=== PATIENT | male | born 1985 | race African-American/Black ===

== ENCOUNTER 2020-09-08 15:08 | Emergency (ER) | payer OTHER ==
[2020-09-08] MEDS ORDERED: CYCLOBENZAPRINE HCL 10 MG TABLET ONE (16:27)
[2020-09-08] MEDS ORDERED: TRAMADOL HCL 50 MG TABLET ONE (16:28)
== END 2020-09-08 17:10 | disposition home or self-care (01) ==
LOC: EDH 15:08
DX: S83.512A Sprain of anterior cruciate ligament of left knee, initial encounter (principal); M54.5 Low back pain; J45.909 Unspecified asthma, uncomplicated; Z88.0 Allergy status to penicillin; V89.2XXA Person injured in unspecified motor-vehicle accident, traffic, initial encounter; Y93.89 Activity, other specified; Y92.488 Other paved roadways as the place of occurrence of the external cause; Y99.8 Other external cause status
CPT/HCPCS: 29505; 72100; 73562

== ENCOUNTER 2023-09-02 15:11 | Emergency (ER) | payer OTHER ==
[~2023-09-02] VITALS: Ht 190.5 cm; Wt 123.4 kg
[~2023-09-02 15:11] MED LIST: CEPH500B PO; PHEN-847 PO
[2023-09-02 15:12] VITALS: BP 140/84; PULSE 85; RESP 16
[2023-09-02] MEDS ORDERED: NAPR-1180 PO (16:01)
[2023-09-02] MEDS ORDERED: LIDOP TP (16:01)
[2023-09-02] MEDS ORDERED: CYCL-309 PO (16:01)
== END 2023-09-02 16:40 | disposition home or self-care (01) ==
LOC: EDH 15:11
DX: M54.50 Low back pain, unspecified (principal); M62.830 Muscle spasm of back; E66.9 Obesity, unspecified; Z79.899 Other long term (current) drug therapy; Z98.890 Other specified postprocedural states; Z88.0 Allergy status to penicillin; V89.2XXA Person injured in unspecified motor-vehicle accident, traffic, initial encounter; Y93.I9 Activity, other involving external motion; Y92.488 Other paved roadways as the place of occurrence of the external cause; Y99.8 Other external cause status

== ENCOUNTER 2023-12-21 18:45 | Emergency (ER) | payer BC, OTHER ==
[~2023-12-21] VITALS: Ht 190.5 cm; Wt 127.5 kg
[~2023-12-21 18:45] MED LIST changes: +CYCL-309 PO; +LIDOP TP; +NAPR-1180 PO
[2023-12-21 19:01] VITALS: BP 123/72; PULSE 81; RESP 20
[2023-12-21] MEDS ORDERED: MELO10CA3 PO (19:55)
== END 2023-12-21 20:51 | disposition home or self-care (01) ==
LOC: EDH 18:45
DX: M25.562 Pain in left knee (principal); J45.909 Unspecified asthma, uncomplicated; E66.9 Obesity, unspecified; Z79.1 Long term (current) use of non-steroidal anti-inflammatories (NSAID); Z88.0 Allergy status to penicillin; Z68.35 Body mass index [BMI] 35.0-35.9, adult
CPT/HCPCS: 73562

== ENCOUNTER 2024-11-20 17:45 | Emergency (ER) | payer BC ==
[~2024-11-20] VITALS: Ht 190.5 cm; Wt 122.5 kg
[~2024-11-20 17:45] MED LIST changes: -CEPH500B PO; -CYCL-309 PO; -LIDOP TP; +MELO10CA3 PO; -NAPR-1180 PO; -PHEN-847 PO
[2024-11-20 18:12] VITALS: BP 135/84; TEMP 98; O2SAT 100
--- NOTE | 2024-11-20 18:23 | ERN ---
ED Note History of Present Illness Stated Complaint: SOB Chief Complaint: Shortness of Breath Time Seen by MD: 17:51 Dictation: 39-year-old male with a history of asthma presents to the ED for evaluation of shortness a breath onset 2 days ago. Patient reports cough, but denies any fever or other associated symptoms at this time. Patient states he only uses an inhaler when needed. Allergies: Coded Allergies: Penicillins (Unverified Allergy, Unknown, 04/24/22) Home Meds Active Scripts Meloxicam, Submicronized (Meloxicam) 10 Mg Capsule, 10 MG PO DAILY, #10 CAP Prov:LOU LUNA MD 12/21/23 Past Medical History Past Medical History: Asthma Additional Past Medical Hx: Obese Surgical History: None Surgical History Other: HERNIA REPAIR Family History: Negative Social History: Negative Review of System Dictation Constitutional: Negative for fever,chills, and weight loss Eyes: Negative for injury, pain,redness, and discharge ENT: Negative for injury,pain or swelling Cardiovascular: Negative for chest pain, palpitations, and edema Respiratory: Positive for shortness a breath, cough negative for wheezing, Abdomen/GI: Negative for abdominal pain, nausea, vomiting, diarrhea, and cons tipation Back: Negative for injury and pain : Negative for injury, bleeding and discharge MS/Extremity: Negative for injury and deformity Skin: Negative for rash, and discoloration Neuro: Negative for headache, weakness, numbness, tingling, and seizure Psych: Negative for suicide ideation, homicidal ideation, and hallucinations Initial Vital Sign VS Vital Signs Date Time Temp Pulse Resp B/P (MAP) Pulse Ox O2 Delivery O2 Flow Rate FiO2 11/20/24 17:48 98.1 72 18 147/87 98 11/20/24 18:12 Room Air* 0 21 Physical Exam Dictation General: awake, alert, NAD Head/Face: Normocephalic, atraumatic Eyes: PERRL, EOMI, vision at baseline ENT: oral cavity clear, TMs clear, no signs of infection Neck: Trachea midline, supple, no nuchal rigidity Cardiovascular: RRR, normal S1/S2, No MRGs, no JVD Respiratory: CTAB, no respiratory distress, mild expiratory wheezing Abdomen: Soft, non-tender, non-distended, normal bowel sounds, no guarding or rebound. Skin: Warm, dry, normal turgor, no rash MS/Extremity: Pulses equal, no cyanosis, neurovascular intact, FROM Neuro: COAx4, GCS 15, strength 5/5, CN 2-12 intact, normal cerebellar exam, normal gait, Psych: Normal behavior, mood, and affect normal ED Course ED Course Orders Procedure Category Date Status Time 12 Lead Ekg Tracing- EKG 11/20/24 Logged Technical 18:18 Chest 1vw RAD 11/20/24 Taken 18:18 Ipratropium/Albuterol PHA 11/20/24 Complete Neb (Duoneb) 18:30 Current Medications Medications (Trade) Dose Ordered Sig/Andrzej Route PRN Reason Start Time Stop Time Status Last Admin Dose Admin Albuterol (DUOneb) 1 udvial ONCE ONCE IH 11/20/24 18:30 11/20/24 18:31 DC Vital Signs Date Time Temp Pulse Resp B/P (MAP) Pulse Ox O2 Delivery O2 Flow Rate FiO2 11/20/24 18:12 98.1 81 18 135/84 100 Room Air* 0 21 11/20/24 17:48 98.1 72 18 147/87 98 Medical Decision Making MDM MDM: Differential diagnosis: Asthma exacerbation, cough, viral syndrome Previous outside records reviewed: Old ER visits. Need for hospitalization: Patient does not meet criteria for hospitalization. Need for emergency major/minor surgery: No Patient's prior external medical records from other ER visits were reviewed by me as indicated. Prior testing and results from previous visits were reviewed. Prior tests were taken into account with medical decision making and resource utilization, independent historian/historians were used to obtain complete medical history. I independently interpreted the test that were performed, results were reviewed by me and considered findings on radiology if ordered. Medical management and examination interpretation discussions were had by me with other qualified healthcare professionals as indicated for the patient's care. DX & DISP Disposition: Discharge Departure Impression: Primary Impression: Acute asthma exacerbation Condition: Stable Scripts Albuterol Sulfate (Ventolin Hfa/Proventil Hfa/Proair Hfa) 90 Mcg Puff 1-2 PUFF IH Q4H PRN for SHORTNESS OF BREATH for 5 Days, #1 INH 0 Refills PHARMACY TO DISPENSE 1 INHALER FOR USE Prov: ROSE COTA MD 11/20/24 Prednisone (Prednisone) 50 Mg Tablet 1 TAB PO DAILY for 5 Days, #5 TAB 0 Refills Prov: ROSE COTA MD 11/20/24 Referrals: NONE (PCP) I have reviewed, & agreed with my scribe's, documentation. (Entered by Maxim Silva, acting as a scribe for Dr. Cota) ROSE COTA MD Nov 20, 2024 18:23
[2024-11-20] MEDS ORDERED: PRED50TA2 PO (19:02)
[2024-11-20] MEDS ORDERED: ALBUHFA IH (19:02)
--- NOTE | 2024-11-20 19:02 | HMCIMG ---
Exam Type: CHEST 1VW Clinical Information: sob Comparison: None Findings: The lungs are clear of infiltrates. The heart is normal in size. The bony and soft tissue structures of the chest are unremarkable. Impression: Clear lungs.
[2024-11-20 19:19] VITALS: PULSE 71; RESP 19
[2024-11-20] MEDS: IpraTROPium/alBUTERol SULFATE 3 ML SOLUTION IH ONE (19:19)
--- NOTE | 2024-11-21 06:36 | EKG ---
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
== END 2024-11-20 19:29 | disposition home or self-care (01) ==
LOC: EDH 17:45
DX: J45.901 Unspecified asthma with (acute) exacerbation (principal); E66.9 Obesity, unspecified; Z88.0 Allergy status to penicillin; Z79.1 Long term (current) use of non-steroidal anti-inflammatories (NSAID); Z98.890 Other specified postprocedural states; Z68.33 Body mass index [BMI] 33.0-33.9, adult
CPT/HCPCS: 71045; 93005; 94640; 99283; 99284

== ENCOUNTER 2024-12-23 15:10 | Emergency (ER) | payer BC ==
[~2024-12-23] VITALS: Ht 190.5 cm; Wt 125.9 kg
[~2024-12-23 15:10] MED LIST changes: +ALBUHFA IH; +PRED50TA2 PO
--- NOTE | 2024-12-23 15:24 | ERN ---
ED Note History of Present Illness Stated Complaint: MECHANICAL FALL Chief Complaint: Mechanical Fall Time Seen by MD: 15:15 Dictation: PATIENT IS HERE WITH COMPLAINTS OF BILATERAL WRIST AND LEFT KNEE PAIN STATUS POST A SLIP FALL AT 01:30 THIS AFTERNOON. HE DID NOT HIT HIS HEAD NO BLOOD THINNERS NO TRAUMA ALERT CRITERIA. PATIENT IS FULL WEIGHT-BEARING TO TRIAGE AND DEMONSTRATES FULL RANGE OF MOTION TO ALL AFFECTED EXTREMITIES. Allergies: Coded Allergies: Penicillins (Unverified Allergy, Unknown, 04/24/22) Home Meds Active Scripts Ibuprofen (Ibuprofen 800 mg Tab) 800 Mg Tab, 800 MG PO Q8H PRN for fever or pain, #30 TAB 0 Refills Prov:CASSANDRA MOTT MAJOR ASSEMBLER 12/23/24 Albuterol Sulfate (Ventolin Hfa/Proventil Hfa/Proair Hfa) 90 Mcg Puff, 1-2 PUFF IH Q4H PRN for SHORTNESS OF BREATH for 5 Days, #1 INH 0 Refills PHARMACY TO DISPENSE 1 INHALER FOR USE Prov:ROSE COTA MD 11/20/24 Prednisone (Prednisone) 50 Mg Tablet, 1 TAB PO DAILY for 5 Days, #5 TAB 0 Refills Prov:ROSE COTA MD 11/20/24 Meloxicam, Submicronized (Meloxicam) 10 Mg Capsule, 10 MG PO DAILY, #10 CAP Prov:LOU LUNA MD 12/21/23 Past Medical History Past Medical History: Asthma Additional Past Medical Hx: Obese Surgical History: None Surgical History Other: HERNIA REPAIR Family History: Negative Social History: Negative RN Note Reviewed/Agreed w/PFSH: Yes Review of System Dictation CONSTITUTIONAL: NEGATIVE EXCEPT FOR HPI HEAD/FACE: NEGATIVE EXCEPT FOR HPI EENT: NEGATIVE EXCEPT FOR HPI RESPIRATORY: NEGATIVE EXCEPT FOR HPI GASTROINTESTINAL/ABDOMINAL: NEGATIVE EXCEPT FOR HPI GENITOURINARY: NEGATIVE EXCEPT FOR HPI MUSCULOSKELETAL: NEGATIVE EXCEPT FOR HPI BILATERAL WRIST, LEFT KNEE PAIN INTEGUMENTARY: NEGATIVE EXCEPT FOR HPI NEUROLOGICAL/PSYCH: NEGATIVE EXCEPT FOR HPI HEMATOLOGIC/LYMPHATIC: NEGATIVE EXCEPT FOR HPI ALL SYSTEMS NEGATIVE, EXCEPT NOTED ABOVE. 13 POINT REVIEW OF SYSTEMS ASSESSED AND ALL NEGATIVE EXCEPT FOR ABOVE. Initial Vital Sign VS Vital Signs Date Time Temp Pulse Resp B/P (MAP) Pulse Ox O2 Delivery O2 Flow Rate FiO2 12/23/24 15:14 97.9 84 16 135/83 97 Room Air 0 12/23/24 17:05 21 Physical Exam Dictation VITAL SIGNS REVIEWED GENERAL APPEARANCE: ALERT, ORIENTED X 3, MILD ACUTE DISTRESS, WELL DEVELOPED, NOURISHED. HEAD AND FACE: NON-TRAUMATIC. EYES: PERRL, PINK CONJUNCTIVAS, EYELID NO TRAUMA, ANTERIOR CHAMBER WITH ARCUS SENILIS. EARS: PINNAS INTACT AND NO SIGNS OF TRAUMA OR ERYTHEMA EAR CANALS CLEAR AND NO DISCHARGE TM NO ERYTHEMA NOSE: NO DISCHARGE, NO BLEEDING. OROPHARYNX: MOUTH NORMAL, TONGUE PINK, PHARYNX CLEAR,NO ERYTHEMA, TONSILS NO EXUDATES, NO ABSCESSES NOTED, MUCOUS MEMBRANE MOIST NECK: SUPPLE, NON-TENDER, NO THYROMEGALY, NO MASSES, NO JVD, NO BRUITS BREAST:DEFERRED CHEST:NO TENDERNESS, NO CREPITUS, NO PARADOXICAL MOVEMENT, NO RETRACTIONS LUNGS:CLEAR, WELL-VENTILATED, SYMMETRIC, NO RALES, NO WHEEZING, NO RHONCHI, NO STRIDOR, GOOD BREATH SOUNDS BILATERALLY HEART: REGULAR RATE, REGULAR RHYTHM, NO MURMUR, NO GALLOPS VASCULAR: NO PERIPHERAL EDEMA, ABDOMEN: SOFT, POSITIVE BOWEL SOUNDS, NONDISTENDED, NO GUARDING, NONTENDER, NO REBOUND, NO MASSES NO HEPATOMEGALY, NO SPLENOMEGALY, NO BARRIOS'S SIGN, NO HERNIAS. RECTAL: DEFERRED GENITAL: DEFERRED NEUROLOGICAL: NORMAL SPEECH, MOTOR FUNCTION INTACT, SENSORY FUNCTION INTACT MUSCULOSKELETAL: NECK NONTENDER, FULL RANGE OF MOTION, BACK NONTENDER, FULL RANGE OF MOTION, EXTREMITIES: MILD TENDERNESS TO BILATERAL WRIST, LEFT KNEE, FULL RANGE OF MOTION NO SHORTENING OR ROTATION OF LEFT LEG FULL WEIGHT-BEARING SKIN: COLOR PINK, DRY, NO TURGOR, NO RASH, NO LACERATIONS, NO ABRASIONS, NO CONTUSIONS. LYMPHATIC: DEFERRED Results (Laboratory/Radiology) Laboratory/Radiology WRIST 2VWS RT REASON: WRIST PAIN STATUS POST FALL TECHNIQUE: 2 views were obtained. FINDINGS: There is no evidence of fracture or dislocation. There is no joint effusion. The soft tissues appear unremarkable. There is no evidence of a radiopaque foreign body. IMPRESSION: No acute findings. WRIST 2VWS LT REASON: WRIST PAIN STATUS POST FALL COMPARISON: None TECHNIQUE: 2 views were obtained of the left wrist. FINDINGS: There are normal-appearing bones. There are no fractures. Joint spaces are preserved. Soft tissues are unremarkable. There is no evidence of foreign body. IMPRESSION: 1. Normal views of the left wrist. KNEE 3VWS LT REASON: LEFT KNEE PAIN STATUS POST SLIP FALL TECHNIQUE: 3 views were obtained. FINDINGS: There is no evidence of fracture or dislocation. There is no joint effusion. The soft tissues appear unremarkable. There is no evidence of a radiopaque foreign body. IMPRESSION: No acute findin Labs Reviewed?: Yes ED Course ED Course Orders Procedure Category Date Status Time Wrist 2vws Lt RAD 12/23/24 Resulted 15:22 Wrist 2vws Rt RAD 12/23/24 Resulted 15:22 Knee 3vws Lt RAD 12/23/24 Resulted 15:22 Ibuprofen 800 Mg Tab PHA 12/23/24 Complete (Motrin) 15:30 Current Medications Medications (Trade) Dose Ordered Sig/Andrzej Route PRN Reason Start Time Stop Time Status Last Admin Dose Admin Ibuprofen (moTRIN) 800 mg ONCE ONCE PO 12/23/24 15:30 12/23/24 15:31 DC 12/23/24 16:03 Vital Signs Date Time Temp Pulse Resp B/P (MAP) Pulse Ox O2 Delivery O2 Flow Rate FiO2 12/23/24 17:05 98.8 88 18 131/61 100 Room Air* 0 21 12/23/24 15:14 97.9 84 16 135/83 97 Room Air 0 ONE THOUSAND SEVEN HUNDRED PATIENT DEMONSTRATES FULL RANGE OF MOTION ALL EXTREMITIES. WE WILL BE DISCHARGED HOME WITH CONTUSIONS OF BILATERAL WRIST AND KNEE Medical Decision Making MDM MEDICAL DISCHARGE MAKING BASED ON X-RAYS OF ALL PAINFUL AREAS LEFT KNEE, BILATERAL WRIST X-RAYS NEGATIVE PATIENT DEMONSTRATES FULL RANGE OF MOTION ALL AFFECTED EXTREMITIES DISCHARGED HOME WITH CONTUSIONS AND TOLD TO SEE HIS PRIMARY CARE MDM: Differential diagnosis: Fall, contusion, wrist pain Risk of complication and/or morbidity or mortality of patient management: None Medications-Per medication reconciliation Need for hospitalization: Patient does not meet criteria for hospitalization. Need for emergency major/minor surgery: No There are no social concerns with this patient. Prescription drug management Prescriptions will include symptomatic care I independently interpreted the test that were performed, results were reviewed by me and considered findings on radiology if ordered. DX & DISP Disposition: Discharge Departure Impression: Primary Impression: Contusion of left wrist, initial encounter Additional Impressions: Contusion of right wrist, initial encounter, Contusion of left knee, initial encounter, Fall Condition: Stable Scripts Ibuprofen (Ibuprofen 800 mg Tab) 800 Mg Tab 800 MG PO Q8H PRN for fever or pain, #30 TAB 0 Refills Prov: CASSANDRA MOTT MAJOR ASSEMBLER 12/23/24 Additional Instructions: FOLLOW-UP WITH PRIMARY CARE PROVIDER IN 1 TO 2 DAYS. TAKE MEDICATIONS DIRECTED HERE IN THE EMERGENCY ROOM. OKAY TO CONTINUE HOME MEDICATIONS UNLESS OTHERWISE DISCUSSED DURING YOUR VISIT IN THE EMERGENCY ROOM TODAY. RETURN TO YOUR NEAREST EMERGENCY ROOM IF SYMPTOMS WORSEN OR IF THERE IS NO IMPROVEMENT. CALL 911 IF YOU NEED IMMEDIATE ASSISTANCE. TAKE TYLENOL OR MOTRIN [id number] NEEDED AND IF NO CONTRAINDICATIONS ARE PRESENT. INCREASE ORAL HYDRATION. A WOUND CULTURE OR URINE CULTURE WAS ORDERED HERE IN THE EMERGENCY ROOM DEPARTMENT PLEASE FOLLOW-UP WITH PRIMARY CARE PROVIDER AND ADVISE THEM TO GET REPEAT PORTS FROM OUR FACILITY. IF YOU HAD ANY MADISON WRAP/SPLINTS THAT WERE APPLIED HERE, PLEASE DO NOT REMOVE THEM UNTIL YOU SEE YOUR PRIMARY CARE OR SPECIALTY. COOL COMPRESSES TO PAIN THREE TO 4 TIMES A DAY. TAKE IBUPROFEN DIRECTED WITH FOOD. SEE YOUR PRIMARY CARE DOCTOR FOR FOLLOW UP AND ACTIVITY TOLERATED Referrals: RAYMOND IBANEZ (PCP) Time of Disposition: 17:00 I have reviewed the case, and I agree with, Diagnosis and Plan I performed the substantive portion of the visit. I have reviewed and personally made and approve the management plan that is documented in the notes by myself or the BABITA. I acknowledge full responsibility for the patient's management plan. CASSANDRA MOTT NP Dec 23, 2024 15:24 ROSE COTA MD Dec 24, 2024 18:41
[2024-12-23] MEDS: ibuPROFEN 800 MG TAB PO ONE (16:03)
--- NOTE | 2024-12-23 16:13 | HMCIMG ---
WRIST 2VWS LT REASON: WRIST PAIN STATUS POST FALL COMPARISON: None TECHNIQUE: 2 views were obtained of the left wrist. FINDINGS: There are normal-appearing bones. There are no fractures. Joint spaces are preserved. Soft tissues are unremarkable. There is no evidence of foreign body. IMPRESSION: 1. Normal views of the left wrist.
--- NOTE | 2024-12-23 16:14 | HMCIMG ---
KNEE 3VWS LT REASON: LEFT KNEE PAIN STATUS POST SLIP FALL TECHNIQUE: 3 views were obtained. FINDINGS: There is no evidence of fracture or dislocation. There is no joint effusion. The soft tissues appear unremarkable. There is no evidence of a radiopaque foreign body. IMPRESSION: No acute findings.
--- NOTE | 2024-12-23 16:14 | HMCIMG ---
WRIST 2VWS RT REASON: WRIST PAIN STATUS POST FALL TECHNIQUE: 2 views were obtained. FINDINGS: There is no evidence of fracture or dislocation. There is no joint effusion. The soft tissues appear unremarkable. There is no evidence of a radiopaque foreign body. IMPRESSION: No acute findings.
[2024-12-23] MEDS ORDERED: IBUP-2077 PO (17:01)
[2024-12-23 17:05] VITALS: BP 131/61; PULSE 88; RESP 18; TEMP 98.7; O2SAT 100
== END 2024-12-23 17:12 | disposition home or self-care (01) ==
LOC: EDH 15:10
DX: S60.212A Contusion of left wrist, initial encounter (principal); S60.211A Contusion of right wrist, initial encounter; S80.02XA Contusion of left knee, initial encounter; J45.909 Unspecified asthma, uncomplicated; E66.9 Obesity, unspecified; Z88.0 Allergy status to penicillin; Z98.890 Other specified postprocedural states; Z79.52 Long term (current) use of systemic steroids; Z79.1 Long term (current) use of non-steroidal anti-inflammatories (NSAID); W01.0XXA Fall on same level from slipping, tripping and stumbling without subsequent striking against object, initial encounter; Y93.89 Activity, other specified; Y92.89 Other specified places as the place of occurrence of the external cause; Y99.8 Other external cause status
CPT/HCPCS: 73100; 73562; 99283

== ENCOUNTER 2025-05-08 20:40 | Emergency (ER) | payer BC ==
[~2025-05-08] VITALS: Ht 188 cm; Wt 123.1 kg
[~2025-05-08 20:40] MED LIST changes: +IBUP-2077 PO
--- NOTE | 2025-05-08 20:41 | NUR ---
UA CUP PROVIDED
[2025-05-08 21:05] LABS: BASOPHILS # (AUTO) 0.02 K/uL (0.00-0.20); BASOPHILS % (AUTO) 0.3 % (0.0-5.0); EOSINOPHILS # (AUTO) 0.05 K/uL (0.00-0.70); EOSINOPHILS % (AUTO) 0.7 % (0.0-8.0); HEMATOCRIT 39.8 % (42-54); IMMATURE GRANULOCYTE ABSOLUTE 0.03 K/uL (0-1); LYMPHOCYTES # (AUTO) 1.9 K/uL (1.0-4.8); LYMPHOCYTES % (AUTO) 26.4 % (21.0-51.0); MEAN CORPUSCULAR HGB CONC 33.4 g/dL (32.0-36.0); MEAN CORPUSCULAR VOLUME 89.6 fL (79-99); MONOCYTES # (AUTO) 0.4 K/uL (0.1-1.0); MONOCYTES % (AUTO) 5.4 % (3.0-13.0); NEUTROPHILS # (AUTO) 4.9 K/uL (1.8-7.7); NEUTROPHILS % (AUTO) 66.8 % (40.0-77.0); PLATELET COUNT (AUTO) 187 K/uL (130-400); RED BLOOD CELL COUNT(AUTO) 4.44 MIL/uL (4.50-6.20); RED CELL DISTRIBUTION WIDTH 11.5 % (11.0-15.5); WHITE BLOOD COUNT (AUTO) 7.4 K/uL (4.8-10.8)
[2025-05-08 21:08] LABS: APPEARANCE,URINE CLEAR (CLEAR); COLOR,URINE LIGHT-YELLOW (YELLOW)
[2025-05-08 21:09] LABS: BILIRUBIN,URINE NEGATIVE (NEGATIVE); GLUCOSE, URINE (UA) NEGATIVE (NEGATIVE); KETONES,URINE NEGATIVE (NEGATIVE); LEUKOCYTE ESTERASE ,URINE NEGATIVE Leu/uL (NEGATIVE); NITRATE,URINE NEGATIVE (NEGATIVE); OCCULT BLOOD,URINE NEGATIVE (NEGATIVE); PH,URINE 5.5 (5.0-8.0); PROTEIN,URINE NEGATIVE (NEGATIVE)
[2025-05-08 21:13] LABS: POTASSIUM 4.1 mmol/L (3.5-5.1)
[2025-05-08 21:13] LABS: ADD UA MICROSCOPIC YES
[2025-05-08 21:15] LABS: MUCUS,URINE RARE LPF (None Seen); RBC,URINE 0-1 /HPF (0-1); SQUAMOUS EPITHELIAL CELL,UR RARE /HPF (0-2)
--- NOTE | 2025-05-08 21:27 | ERN ---
ED Note History of Present Illness Stated Complaint: ABD PAIN N/V Chief Complaint: Abdominal Pain Time Seen by MD: 20:48 Dictation: This is a 39-year-old male who has presented to the emergency room with the abdominal pain nausea and vomitings that just started. He stated that he ate go goes squeeze apple strawberry which had an expiration date of 03/17 2023 from a local store and subsequently began experiencing all these symptoms. No hematemesis or melena. No fevers chills or rigors. Temp 99 pulse 89 respirations 20 blood pressure 131/75 with a pulse oximetry of 98% on room air Allergies: Coded Allergies: Penicillins (Unverified Allergy, Unknown, 04/24/22) Home Meds Active Scripts Ibuprofen (Ibuprofen 800 mg Tab) 800 Mg Tab, 800 MG PO Q8H PRN for fever or pain, #30 TAB 0 Refills Prov:CASSANDRA MOTT MILK BOTTLER 12/23/24 Albuterol Sulfate (Ventolin Hfa/Proventil Hfa/Proair Hfa) 90 Mcg Puff, 1-2 PUFF IH Q4H PRN for SHORTNESS OF BREATH for 5 Days, #1 INH 0 Refills PHARMACY TO DISPENSE 1 INHALER FOR USE Prov:ROSE COTA MD 11/20/24 Prednisone (Prednisone) 50 Mg Tablet, 1 TAB PO DAILY for 5 Days, #5 TAB 0 Refills Prov:ROSE COTA MD 11/20/24 Meloxicam, Submicronized (Meloxicam) 10 Mg Capsule, 10 MG PO DAILY, #10 CAP Prov:LOU LUNA MD 12/21/23 Past Medical History Past Medical History: No Pertinent History, Asthma Additional Past Medical Hx: Obese Surgical History: Other Surgical History Other: HERNIA REPAIR Family History: Negative Social History: Negative RN Note Reviewed/Agreed w/PFSH: Yes Review of System Dictation Constitutional: Negative for fever,chills, and weight loss Eyes: Negative for injury, pain,redness, and discharge ENT: Negative for injury,pain or swelling Cardiovascular: Negative for chest pain, palpitations, and edema Respiratory: Negative for shortness of breath, cough, and wheezing, Abdomen/GI: Positive for abdominal pain, nausea, vomiting, diarrhea, Back: Negative for injury and pain : Negative for injury, bleeding and discharge MS/Extremity: Negative for injury and deformity Skin: Negative for rash, and discoloration Neuro: Negative for headache, weakness, numbness, tingling, and seizure Psych: Negative for suicide ideation, homicidal ideation, and hallucinations Initial Vital Sign VS Vital Signs Date Time Temp Pulse Resp B/P (MAP) Pulse Ox O2 Delivery O2 Flow Rate FiO2 05/08/25 20:41 99.0 89 20 131/75 98 Room Air 05/08/25 22:25 0 21 Physical Exam Dictation General: awake, alert, NAD very comfortable Head/Face: Normocephalic, atraumatic Eyes: PERRL, EOMI, vision at baseline ENT: oral cavity clear, TMs clear, no signs of infection Neck: Trachea midline, supple, no nuchal rigidity Cardiovascular: RRR, normal S1/S2, No MRGs, no JVD Respiratory: CTAB, no respiratory distress, No rales or wheezes Abdomen: Soft, non-tender, non-distended, normal bowel sounds, no guarding or rebound. Skin: Warm, dry, normal turgor, no rash MS/Extremity: Pulses equal, no cyanosis, neurovascular intact, FROM Neuro: COAx4, GCS 15, strength 5/5, CN 2-12 intact, normal cerebellar exam, normal gait, Psych: Normal behavior, mood, and affect normal Extremities-trace edema without any palpable cords, Homans sign is negative Results (Laboratory/Radiology) Laboratory/Radiology Laboratory Tests Test 05/08/25 20:51 05/08/25 20:57 Urine Color LIGHT-YELLOW (YELLOW) Urine Appearance CLEAR (CLEAR) Urine pH 5.5 (5.0-8.0) Urine Specific [place] 1.025 (1.001-1.031) Urine Protein NEGATIVE mg/dL (NEGATIVE) Urine Glucose (UA) NEGATIVE mg/dL (NEGATIVE) Urine Ketones NEGATIVE mg/dL (NEGATIVE) Urine Occult Blood NEGATIVE (NEGATIVE) Urine Nitrate NEGATIVE (NEGATIVE) Urine Bilirubin NEGATIVE mg/dL (NEGATIVE) Urine Urobilinogen 2.0 mg/dL (0.2-1.0) H Urine Leukocyte Esterase NEGATIVE Stacy/uL Urine RBC 0-1 /HPF (0-1) Urine WBC 2-5 /HPF (0-1) H Urine Squamous Epithelial Cells RARE /HPF (0-2) Urine Bacteria None /HPF (None Seen) White Blood Count 7.4 K/uL (4.8-10.8) Red Blood Count 4.44 MIL/uL (4.50-6.20) L Hemoglobin 13.3 g/dL (14.0-18.0) L Hematocrit 39.8 % (42-54) L Mean Corpuscular Volume 89.6 fL (79-99) Mean Corpuscular Hemoglobin 30.0 pg (27.0-33.0) Mean Corpuscular Hemoglobin Concent 33.4 g/dL (32.0-36.0) Red Cell Distribution Width 11.5 % (11.0-15.5) Platelet Count 187 K/uL (130-400) Mean Platelet Volume 10.0 fL (7.5-10.5) Immature Granulocyte % (Auto) 0.4 % (0-1) Neutrophils (%) (Auto) 66.8 % (40.0-77.0) Lymphocytes (%) (Auto) 26.4 % (21.0-51.0) Monocytes (%) (Auto) 5.4 % (3.0-13.0) Eosinophils (%) (Auto) 0.7 % (0.0-8.0) Basophils (%) (Auto) 0.3 % (0.0-5.0) Neutrophils # (Auto) 4.9 K/uL (1.8-7.7) Lymphocytes # (Auto) 1.9 K/uL (1.0-4.8) Monocytes # (Auto) 0.4 K/uL (0.1-1.0) Eosinophils # (Auto) 0.05 K/uL (0.00-0.70) Basophils # (Auto) 0.02 K/uL (0.00-0.20) Absolute Immature Granulocyte (auto 0.03 K/uL (0-1) Nucleated Red Blood Cells 0.0 % (0.0-0.19) Sodium Level 144 mmol/L (136-145) Potassium Level 4.1 mmol/L (3.5-5.1) Chloride Level 106 mmol/L (101-111) Carbon Dioxide Level 30 mmol/L (21-32) Blood Urea Nitrogen 13 mg/dL (7-18) Creatinine 1.0 mg/dL (0.5-1.3) Glomerular Filtration Rate Calc 99 mL/min (>90) Random Glucose 119 mg/dL (70-105) H Total Calcium 8.8 mg/dL (8.5-10.1) Lipase 32 U/L (16-77) Labs Reviewed?: Yes ED Course ED Course Orders Procedure Category Date Status Time Vital Signs Per CPOE 05/08/25 Transmitted Routine 20:42 Saline Lock Iv CPOE 05/08/25 Transmitted 20:42 Cbc With Differential LAB 05/08/25 Complete 20:42 Lipase LAB 05/08/25 Complete 20:42 Urinalysis Profile LAB 05/08/25 Complete 20:42 Basic Metabolic Panel LAB 05/08/25 Complete 20:42 Ketorolac PHA 05/08/25 Complete Tromethamine 30mg/Ml 21:30 Ondansetron 4mg PHA 05/08/25 In Process Tablet (Zofran 4mg 21:30 Dicyclomine Hcl PHA 05/08/25 Complete (Bentyl 20mg Inj) 21:30 Current Medications Medications (Trade) Dose Ordered Sig/Andrzej Route PRN Reason Start Time Stop Time Status Last Admin Dose Admin Dicyclomine HCl (Bentyl 20mg Inj) 20 mg ONCE ONCE IM 05/08/25 21:30 05/08/25 21:42 DC Ketorolac Tromethamine (toRADol) 30 mg ONCE ONCE IM 05/08/25 21:30 05/08/25 21:42 DC Ondansetron HCl (zoFRAN 4MG TABLET) 4 mg ONCE ONCE PO 05/08/25 21:30 05/08/25 21:42 DC 05/08/25 21:52 Vital Signs Date Time Temp Pulse Resp B/P (MAP) Pulse Ox O2 Delivery O2 Flow Rate FiO2 05/08/25 22:25 98.1 74 18 127/79 96 Room Air* 0 21 05/08/25 20:41 99.0 89 20 131/75 98 Room Air We will perform diagnostic labs, advanced imaging and administer medications according to the patient's complaint. Once the results are available, will review and personally interpreted the labs to rule out any acute life- threatening emergency the trach require immediate intervention and treatment. I will then re-evaluate the patient after treatment and diagnostic exams have return to determine whether the patient requires any further testing, can safely be discharged home or need further admission to hospital for additional treatment and evaluation. 9:25 p.m. labs reviewed CBC is with a normal limits. BNP 7 is normal. Urinalysis is unremarkable. Updated the patient on all the negative studies and reassured him with a benign abdominal exam no tenderness that his symptoms probably are related to a mild food poisoning. Answered all his questions we will discharge him to follow up with his PCP Medical Decision Making MDM MDM: Differential diagnosis: Gastroenteritis, gastritis, food poisoning, esophagitis, colitis Rationale: Tests considered and ordered secondary to shared decision making include: Previous outside records reviewed: Old ER visits. Risk of complication and/or morbidity or mortality of patient management: None Medications-Per medication reconciliation Need for hospitalization: Patient does not meet criteria for hospitalization. Need for emergency major/minor surgery: No There are no social concerns with this patient. Prescription drug management Prescriptions will include symptomatic care Patient's prior external medical records from other ER visits were reviewed by me as indicated. Prior testing and results from previous visits were reviewed. Prior tests were taken into account with medical decision making and resource utilization, independent historian/historians were used to obtain complete medical history. I independently interpreted the test that were performed, results were reviewed by me and considered findings on radiology if ordered. Medical management and examination interpretation discussions were had by me with other qualified healthcare professionals as indicated for the patient's care. Problem List Problem List: (1) Food poisoning DX & DISP Disposition: Discharge Departure Impression: Primary Impression: Food poisoning Condition: Stable Additional Instructions: Patient and the caregiver have been informed of all the diagnostic tests and the imaging conducted during the today's visit to the emergency room and has verbalized understanding of the results I have personally reviewed and interpreted all diagnostic exams performed here in the ER today as well as the vital signs documented by the nursing staff. The patient is now being discharged to home and should follow up with the primary care physician or the specialist as directed by the ER staff. Follow-up with primary care provider in 1 to 2 days. Take medications as directed here in the emergency room. Okay to continue home medications unless otherwise discussed during your visit in the emergency room today. Return to your nearest emergency room if symptoms worsen or if there is no improvement. Call 911 if you need immediate assistance. Take Tylenol or Motrin over-the- counter as needed and if no contraindications are present. Increase oral hydration. A wound culture or urine culture was ordered here in the emergency room department please follow-up with primary care provider and advise them to get repeat ports from our facility. If you had any Brooks wrap/splints that were applied here, please do not remove them until you see your primary care or specialty. Recommended to increase his fluids. [id number] Tylenol PRN Referrals: RAYMOND IBANEZ (PCP) PARRISH GREENBERG MD May 08, 2025 21:27
[2025-05-08] MEDS: ketOROlac 30MG VIAL (30MG/ML) IM ONE (21:52)
[2025-05-08] MEDS: ondanSETRON 4MG TABLET PO ONE (21:52)
[2025-05-08] MEDS: DICYCLOMINE 20MG (10MG/ML) AMP IM ONE (21:52)
[2025-05-08 22:25] VITALS: BP 127/79; PULSE 74; RESP 18; TEMP 98.1; O2SAT 96
== END 2025-05-08 22:26 | disposition home or self-care (01) ==
LOC: EDH 20:40
DX: A05.9 Bacterial foodborne intoxication, unspecified (principal); E66.9 Obesity, unspecified; Z79.1 Long term (current) use of non-steroidal anti-inflammatories (NSAID); Z79.52 Long term (current) use of systemic steroids; Z88.0 Allergy status to penicillin; Z98.890 Other specified postprocedural states; Z68.34 Body mass index [BMI] 34.0-34.9, adult
CPT/HCPCS: 99283; 80048; 83690; 85025; 81001; 36415; Q0162; J0500; J1885

== ENCOUNTER 2025-06-23 19:28 | Emergency (ER) | payer BC ==
[~2025-06-23] VITALS: Ht 190.5 cm; Wt 123.8 kg
--- NOTE | 2025-06-23 21:14 | HMCIMG ---
EXAM: CT Head Without IV contrast. CLINICAL HISTORY: Head injury TECHNIQUE: Axial computed tomography images of the head/brain without intravenous contrast. COMPARISON: None provided FINDINGS: BRAIN: No evidence of acute hemorrhage. No mass lesion. No CT evidence for acute territorial infarct. No midline shift or extra-axial collections. VENTRICLES: No hydrocephalus. ORBITS: The orbits are unremarkable. SINUSES AND MASTOIDS: The paranasal sinuses and mastoid air cells are clear. BONES: No fracture. SOFT TISSUES: Unremarkable. IMPRESSION: No acute intracranial abnormality. /[place]
--- NOTE | 2025-06-23 21:36 | HMCIMG ---
EXAM: CR left Knee, 3 View. CLINICAL HISTORY: pain, injury COMPARISON: None provided. FINDINGS: BONES: No acute fracture or aggressive appearing osseous lesion. JOINTS: The joint spaces show no significant degenerative disease. There is no joint effusion appreciated. SOFT TISSUES: The soft tissues are unremarkable. IMPRESSION: No acute osseous pathology evident. /[place]
--- NOTE | 2025-06-23 21:51 | ERN ---
General Chief Complaint: Mechanical Fall Stated Complaint: C/O PAIN TO LEFT KNEE AND PAIN TO BACK OF HEAD Time Seen by MD: 19:44 Time Seen by Midlevel: 19:44 Source: patient History of Present Illness Initial Comments 39-year-old male who presents to the emergency department after a fall. Patient states he slipped and fell hitting the back of the head and complaining of left knee pain. Patient denies any LOC, denies blood thinners. Denies significant past medical history. Allergies: Coded Allergies: Penicillins (Unverified Allergy, Unknown, 04/24/22) Home Meds Active Scripts Ibuprofen (Ibuprofen 800 mg Tab) 800 Mg Tab, 800 MG PO Q8H PRN for fever or pain, #30 TAB 0 Refills Prov:CASSANDRA MOTT COMPUTER [employer]ERICAL CONTROL PROGRAMMER 12/23/24 Albuterol Sulfate (Ventolin Hfa/Proventil Hfa/Proair Hfa) 90 Mcg Puff, 1-2 PUFF IH Q4H PRN for SHORTNESS OF BREATH for 5 Days, #1 INH 0 Refills PHARMACY TO DISPENSE 1 INHALER FOR USE Prov:ROSE COTA MD 11/20/24 Prednisone (Prednisone) 50 Mg Tablet, 1 TAB PO DAILY for 5 Days, #5 TAB 0 Refills Prov:ROSE COTA MD 11/20/24 Meloxicam, Submicronized (Meloxicam) 10 Mg Capsule, 10 MG PO DAILY, #10 CAP Prov:LOU LUNA MD 12/21/23 Past Medical History Past Medical History: Asthma Medical History Other: Obese Past Surgical History: None Surgical History Other: HERNIA REPAIR Family History Family History: Negative Social History Social History: Negative ROS Dictation Constitutional: Negative for fever,chills, and weight loss Eyes: Negative for injury, pain,redness, and discharge ENT: Negative for injury,pain or swelling Cardiovascular: Negative for chest pain, palpitations, and edema Respiratory: Negative for shortness of breath, cough, and wheezing, Abdomen/GI: Negative for abdominal pain, nausea, vomiting, diarrhea, and constipation Back: Negative for injury and pain : Negative for painful urination, bleeding or discharge MS/Extremity: Positive for left knee pain Negative for injury and deformity Skin: Negative for rash, and discoloration Neuro: Positive for headache Negative for weakness, numbness, tingling, and seizure Psych: Negative for suicide ideation, homicidal ideation, and hallucinations Physical Exam Physical Exam Dictation General: awake, alert, no acute distress Head/Face: Normocephalic, atraumatic Eyes: PERRL, EOMI, normal conjunctiva ENT: oral cavity clear, oral mucosa moist Neck: Supple, normal range of motion Cardiovascular: RRR, normal S1/S2 Respiratory: CTAB, no respiratory distress Skin: Warm, dry, normal turgor, no rash MS/Extremity: Pulses equal, no cyanosis, neurovascular intact, FROM. Left knee medial and posterior tenderness, no obvious deformity. Neuro: COAx4, GCS 15, no neurological deficits Psych: Normal behavior, mood, and affect normal Results EKG/XRAY/US/CT/MRI X-RAY Comment REASON: pain, injury ORDERING PHYSICIAN: LLUVIA MAKI PROCEDURE: KNEE 3V LT - KNEE 3VWS LT EXAM: CR left Knee, 3 View. CLINICAL HISTORY: pain, injury COMPARISON: None provided. FINDINGS: BONES: No acute fracture or aggressive appearing osseous lesion. JOINTS: The joint spaces show no significant degenerative disease. There is no joint effusion appreciated. SOFT TISSUES: The soft tissues are unremarkable. IMPRESSION: No acute osseous pathology evident. /[place] DICTATED BY: RUDDY RUSSELL Jr., MD DATE: 06/23/252234 CT Scan Comment REASON: Head injury ORDERING PHYSICIAN: LLUVIA MAKI PROCEDURE: HEAD WO - CT HEAD/BRAIN W/O CONTRAST EXAM: CT Head Without IV contrast. CLINICAL HISTORY: Head injury TECHNIQUE: Axial computed tomography images of the head/brain without intravenous contrast. COMPARISON: None provided FINDINGS: BRAIN: No evidence of acute hemorrhage. No mass lesion. No CT evidence for acute territorial infarct. No midline shift or extra-axial collections. VENTRICLES: No hydrocephalus. ORBITS: The orbits are unremarkable. SINUSES AND MASTOIDS: The paranasal sinuses and mastoid air cells are clear. BONES: No fracture. SOFT TISSUES: Unremarkable. IMPRESSION: No acute intracranial abnormality. /[place] DICTATED BY: RUDDY RUSSELL Jr., MD DATE: 06/23/252212 [facility] MDM: Differential diagnosis: Fracture, sprain, strain, head injury, intracranial bleed Rationale: 39-year-old male who presents to the emergency department after a fall. Patient states he slipped and fell hitting the back of the head and complaining of left knee pain. Patient denies any LOC, denies blood thinners. Denies significant past medical history. Per physical examination patient is in no acute distress, neurologically intact. No obvious deformities to the left knee, tenderness noted, neurovascularly intact. X-rays of the left knee obtained with no indications of fractures or dislocations. Head CT shows no acute abnormalities. Patient received ibuprofen while in the ED, and placed on a knee immobilizer. Patient was educated on findings and diagnosis. Advised to follow up PCP. Return to the emergency department if any worsening symptoms. Patient verbalized understanding. Patient stable for discharge. There are no social concerns with this patient. I independently interpreted the test that were performed, results were reviewed by me and considered findings on radiology if ordered. Medical management and examination interpretation discussions were had by me with other qualified healthcare professionals as indicated for the patient's care. ED Course Orders Procedure Category Date Status Time Ct Head/Brain W/O CT 06/23/25 Resulted Contrast 20:00 Knee 3vws Lt RAD 06/23/25 Resulted 20:00 Ibuprofen 600 Mg PHA 06/23/25 Complete Tablet (Motrin) 21:00 Current Medications Medications (Trade) Dose Ordered Sig/Andzrej Route PRN Reason Start Time Stop Time Status Last Admin Dose Admin Ibuprofen (moTRIN) 600 mg ONCE ONCE PO 06/23/25 21:00 06/23/25 21:01 DC 06/23/25 20:49 Vital Signs Date Time Temp Pulse Resp B/P (MAP) Pulse Ox O2 Delivery O2 Flow Rate FiO2 06/23/25 19:30 98.6 82 20 136/81 97 Room Air DX & DISP Disposition: Discharge Departure Impression: Primary Impression: Fall Additional Impression: Knee sprain Condition: Stable Additional Instructions: Discharge home. Rest. Follow up with primary care in 24 hours. Return to the ER for any acute changes or worsening symptoms. If any medications were prescribed take as directed. Okay to continue home medications unless otherwise discussed during your visit in the emergency room today. Patient was also advised to follow-up with primary care physician in 1 to 2 days for continued monitoring. Referrals: RAYMOND IBANEZ (PCP) I performed the substantive portion of the visit. I have reviewed and personally made and approve the management plan that is documented in the notes by myself or the BABITA. I acknowledge full responsibility for the patient's management plan. LLUVIA MAKI Jun 23, 2025 21:51
--- NOTE | 2025-06-23 21:52 | NUR ---
LEFT KNEE IMMOBILIZER PLACED PER ED PA
[2025-06-23 22:19] VITALS: BP 150/79; PULSE 76; RESP 18; TEMP 98.3; O2SAT 98
== END 2025-06-23 22:22 | disposition home or self-care (01) ==
LOC: EDH 19:28
DX: S83.92XA Sprain of unspecified site of left knee, initial encounter (principal); E66.9 Obesity, unspecified; J45.909 Unspecified asthma, uncomplicated; Z79.1 Long term (current) use of non-steroidal anti-inflammatories (NSAID); Z79.52 Long term (current) use of systemic steroids; Z88.0 Allergy status to penicillin; Z98.890 Other specified postprocedural states; W01.0XXA Fall on same level from slipping, tripping and stumbling without subsequent striking against object, initial encounter; Y93.89 Activity, other specified; Y92.89 Other specified places as the place of occurrence of the external cause; Y99.8 Other external cause status
CPT/HCPCS: 29505; 70450; 73562; 99284

== ENCOUNTER 2025-07-24 08:37 | Emergency (ER) | payer SELFPAY ==
[~2025-07-24] VITALS: Ht 190.5 cm; Wt 122.1 kg
[2025-07-24 08:45] VITALS: TEMP 97.9
[2025-07-24 09:11] LABS: IMMATURE GRANULOCYTE ABSOLUTE 0.03 K/uL (0-1); NUCLEATED RED BLOOD CELLS 0.0 % (0.0-0.19); PLATELET COUNT (AUTO) 160 K/uL (130-400); RED BLOOD CELL COUNT(AUTO) 4.78 MIL/uL (4.50-6.20); RED CELL DISTRIBUTION WIDTH 11.3 % (11.0-15.5); WHITE BLOOD COUNT (AUTO) 6.9 K/uL (4.8-10.8)
[2025-07-24] MEDS: 0.9%NACL 1000ML 1,000 ML IV ONE (09:21)
[2025-07-24] MEDS: LOPERAMIDE HCL 2 MG CAP PO ONE (09:21)
[2025-07-24 09:29] LABS: ASPARTATE AMINOTRANSFERASE 18.0 U/L (10-37); CREATININE 1.0 mg/dL (0.5-1.3); GLOMERULAR FILTR. RATE CALC 99.0 mL/min (>90); GLUCOSE,RANDOM 96.0 mg/dL (70-105); TOTAL PROTEIN, SERUM 7.2 g/dL (6.0-8.3); UREA NITROGEN, BLOOD 12.0 mg/dL (7-18)
[2025-07-24 09:30] LABS: SODIUM SERUM 138.0 mmol/L (136-145)
[2025-07-24] MEDS ORDERED: ONDA-243 PO (09:42)
[2025-07-24] MEDS ORDERED: DICY20TA2 PO (09:42)
--- NOTE | 2025-07-24 09:42 | ERN ---
ED Note History of Present Illness Stated Complaint: ABDOMINAL PAIN Chief Complaint: Abdominal Pain Time Seen by MD: 08:47 Dictation: 39-year-old male presenting to the emergency department for nausea vomiting and diarrhea belly cramps after eating spoiled cake yesterday. Patient denies no pain just feels crampy discomfort. Allergies: Coded Allergies: Penicillins (Unverified Allergy, Unknown, 04/24/22) Home Meds Active Scripts Ibuprofen (Ibuprofen 800 mg Tab) 800 Mg Tab, 800 MG PO Q8H PRN for fever or pain, #30 TAB 0 Refills Prov:CASSANDRA MOTT LINING BRUSHER 12/23/24 Albuterol Sulfate (Ventolin Hfa/Proventil Hfa/Proair Hfa) 90 Mcg Puff, 1-2 PUFF IH Q4H PRN for SHORTNESS OF BREATH for 5 Days, #1 INH 0 Refills PHARMACY TO DISPENSE 1 INHALER FOR USE Prov:ROSE COTA MD 11/20/24 Prednisone (Prednisone) 50 Mg Tablet, 1 TAB PO DAILY for 5 Days, #5 TAB 0 Refills Prov:ROSE COTA MD 11/20/24 Meloxicam, Submicronized (Meloxicam) 10 Mg Capsule, 10 MG PO DAILY, #10 CAP Prov:LOU LUNA MD 12/21/23 Past Medical History Past Medical History: No Pertinent History Additional Past Medical Hx: denies pmhx Surgical History: Other Surgical History Other: hernia repair Family History: Negative Social History: Negative Review of System Dictation Constitutional: Negative for fever,chills, and weight loss Eyes: Negative for injury, pain,redness, and discharge ENT: Negative for injury,pain or swelling Cardiovascular: Negative for chest pain, palpitations, and edema Respiratory: Negative for shortness of breath, cough, and wheezing, Abdomen/GI: Per HPI : Negative for injury, bleeding and discharge MS/Extremity: Negative for injury and deformity Skin: Negative for rash, and discoloration Neuro: Negative for headache, weakness, numbness, tingling, and seizure Initial Vital Sign VS Vital Signs Date Time Temp Pulse Resp B/P (MAP) Pulse Ox O2 Delivery O2 Flow Rate FiO2 07/24/25 08:42 97.9 92 18 139/92 96 0 07/24/25 08:45 Room Air* 21 Physical Exam Dictation General: awake, alert, NAD Head/Face: Normocephalic, atraumatic Eyes: PERRL, EOMI, vision at baseline ENT: oral cavity clear, TMs clear, no signs of infection Neck: Trachea midline, supple, no nuchal rigidity Cardiovascular: RRR, normal S1/S2, No MRGs, no JVD Respiratory: CTAB, no respiratory distress, No rales or wheezes Abdomen: Soft, non-tender, non-distended, normal bowel sounds, no guarding or rebound. Skin: Warm, dry, normal turgor, no rash MS/Extremity: Pulses equal, no cyanosis, neurovascular intact, FROM Neuro: COAx4, GCS 15, strength 5/5, CN 2-12 intact, normal cerebellar exam, normal gait, Psych: Normal behavior, mood, and affect normal Results (Laboratory/Radiology) Laboratory/Radiology Laboratory Tests Test 07/24/25 08:51 White Blood Count 6.9 K/uL (4.8-10.8) Red Blood Count 4.78 MIL/uL (4.50-6.20) Hemoglobin 14.4 g/dL (14.0-18.0) Hematocrit 43.8 % (42-54) Mean Corpuscular Volume 91.6 fL (79-99) Mean Corpuscular Hemoglobin 30.1 pg (27.0-33.0) Mean Corpuscular Hemoglobin Concent 32.9 g/dL (32.0-36.0) Red Cell Distribution Width 11.3 % (11.0-15.5) Platelet Count 160 K/uL (130-400) Mean Platelet Volume 10.2 fL (7.5-10.5) Immature Granulocyte % (Auto) 0.4 % (0-1) Neutrophils (%) (Auto) 78.9 % (40.0-77.0) H Lymphocytes (%) (Auto) 13.2 % (21.0-51.0) L Monocytes (%) (Auto) 6.0 % (3.0-13.0) Eosinophils (%) (Auto) 1.2 % (0.0-8.0) Basophils (%) (Auto) 0.3 % (0.0-5.0) Neutrophils # (Auto) 5.4 K/uL (1.8-7.7) Lymphocytes # (Auto) 0.9 K/uL (1.0-4.8) L Monocytes # (Auto) 0.4 K/uL (0.1-1.0) Eosinophils # (Auto) 0.08 K/uL (0.00-0.70) Basophils # (Auto) 0.02 K/uL (0.00-0.20) Absolute Immature Granulocyte (auto 0.03 K/uL (0-1) Nucleated Red Blood Cells 0.0 % (0.0-0.19) Sodium Level 138 mmol/L (136-145) Potassium Level 4.2 mmol/L (3.5-5.1) Chloride Level 101 mmol/L (101-111) Carbon Dioxide Level 32 mmol/L (21-32) Blood Urea Nitrogen 12 mg/dL (7-18) Creatinine 1.0 mg/dL (0.5-1.3) Glomerular Filtration Rate Calc 99 mL/min (>90) Random Glucose 96 mg/dL (70-105) Total Calcium 8.7 mg/dL (8.5-10.1) Total Bilirubin 0.5 mg/dL (0.2-1.0) Direct Bilirubin 0.1 mg/dL (0.0-0.3) Aspartate Amino Transf (AST/SGOT) 18 U/L (10-37) Alanine Aminotransferase (ALT/SGPT) 36 U/L (12-78) Alkaline Phosphatase 68 U/L (50-136) Total Protein 7.2 g/dL (6.0-8.3) Albumin 4.1 g/dL (3.5-5.0) Lipase 42 U/L (16-77) Labs Reviewed?: Yes ED Course ED Course Orders Procedure Category Date Status Time Basic Metabolic Panel LAB 07/24/25 Complete 08:47 Cbc With Differential LAB 07/24/25 Complete 08:47 Hepatic Function Panel LAB 07/24/25 Complete 08:47 Lipase LAB 07/24/25 Complete 08:47 Ondansetron 4mg Inj PHA 07/24/25 Complete (Zofran 4mg Inj) 09:00 0.9%Nacl 1000ml (Ns PHA 07/24/25 Complete 1000ml) 09:00 Loperamide Hcl 2 Mg PHA 07/24/25 Complete Cap (Imodium) 09:00 Current Medications Medications (Trade) Dose Ordered Sig/Andrzej Route PRN Reason Start Time Stop Time Status Last Admin Dose Admin Loperamide HCl (Imodium) 4 mg ONCE ONCE PO 07/24/25 09:00 07/24/25 09:01 DC 07/24/25 09:21 Ondansetron HCl (zoFRAN 4MG INJ) 4 mg ONCE ONCE IVP 07/24/25 09:00 07/24/25 09:01 DC 07/24/25 09:21 Sodium Chloride 1,000 ml @ 0 mls/hr ONCE ONCE IV 07/24/25 09:00 07/24/25 09:01 DC 07/24/25 09:21 Vital Signs Date Time Temp Pulse Resp B/P (MAP) Pulse Ox O2 Delivery O2 Flow Rate FiO2 07/24/25 08:45 97.9 91 18 139/92 96 Room Air* 0 21 07/24/25 08:42 97.9 92 18 139/92 96 0 Medical Decision Making MDM MDM: Differential diagnosis: Rationale: Tests considered and ordered secondary to shared decision making include: Previous outside records reviewed: Old ER visits. Risk of complication and/or morbidity or mortality of patient management: None Medications-Per medication reconciliation Need for hospitalization: Patient does not meet criteria for hospitalization. Need for emergency major/minor surgery: No There are no social concerns with this patient. Prescription drug management Prescriptions will include symptomatic care Patient's prior external medical records from other ER visits were reviewed by me as indicated. Prior testing and results from previous visits were reviewed. Prior tests were taken into account with medical decision making and resource utilization, independent historian/historians were used to obtain complete medical history. I independently interpreted the test that were performed, results were reviewed by me and considered findings on radiology if ordered. Medical management and examination interpretation discussions were had by me with other qualified healthcare professionals as indicated for the patient's care. 39-year-old with acute gastroenteritis stable exam prescriptions given stable for discharge. DX & DISP Disposition: Discharge Departure Impression: Primary Impression: Acute gastroenteritis Condition: Stable Scripts Dicyclomine HCl (Bentyl) 20 Mg Tab 1 TAB PO BID for irritable bowel symptoms for 5 Days, #10 10 0 Refills Prov: ROSE COTA MD 07/24/25 Ondansetron (Ondansetron Odt) 4 Mg Tab.rapdis 4 MG PO BID for 5 Days, #10 TAB Prov: ROSE COTA MD 07/24/25 Referrals: RAYMOND IBANEZ (PCP) ROSE COTA MD Jul 24, 2025 09:42
[2025-07-24 09:49] VITALS: BP 125/78; PULSE 71; RESP 20; O2SAT 97
== END 2025-07-24 09:58 | disposition home or self-care (01) ==
LOC: EDH 08:37
DX: K52.9 Noninfective gastroenteritis and colitis, unspecified (principal); Z79.1 Long term (current) use of non-steroidal anti-inflammatories (NSAID); Z79.52 Long term (current) use of systemic steroids; Z88.0 Allergy status to penicillin; Z98.890 Other specified postprocedural states
CPT/HCPCS: 99283; 96374; 96361; 80076; 80048; 83690; 85025; 36415; J7030; J2405

== ENCOUNTER 2025-08-02 13:41 | Emergency (ER) | payer BC, MEDICAID ==
[~2025-08-02] VITALS: Ht 190.5 cm; Wt 118.8 kg
[~2025-08-02 13:41] MED LIST changes: +DICY20TA2 PO; +ONDA-243 PO
--- NOTE | 2025-08-02 13:50 | ERN ---
ED Note History of Present Illness Stated Complaint: ABDOMINAL PAIN Chief Complaint: Abdominal Pain Time Seen by MD: 13:45 Dictation: PATIENT IS A 39-YEAR-OLD MALE COMING IN TODAY WITH INTERMITTENT ABDOMINAL PAIN NAUSEA VOMITING ONSET WAS THE June. HE STATES HE HAD GONE OUT WITH SOME HIS FRIENDS AND ATE SOME CAKE THAT HAD MOLD ON IT. HE WAS SEEN THAT DAY AT [facility] WAS DISCHARGED HOME WITH FOOD POISONING, STATES HE NEVER GOT BETTER. STATES HE HAS NOT BEEN TO SEE HIS PRIMARY CARE DOCTOR NO FEVER NO CHILLS. Allergies: Coded Allergies: Penicillins (Unverified Allergy, Unknown, 04/24/22) Home Meds Active Scripts Dicyclomine HCl (Bentyl) 20 Mg Tab, 1 TAB PO BID for irritable bowel symptoms for 5 Days, #10 10 0 Refills Prov:ROSE COTA MD 07/24/25 Ondansetron (Ondansetron Odt) 4 Mg Tab.rapdis, 4 MG PO BID for 5 Days, #10 TAB Prov:ROSE COTA MD 07/24/25 Ibuprofen (Ibuprofen 800 mg Tab) 800 Mg Tab, 800 MG PO Q8H PRN for fever or pain, #30 TAB 0 Refills Prov:CASSANDRA MOTT NP 12/23/24 Albuterol Sulfate (Ventolin Hfa/Proventil Hfa/Proair Hfa) 90 Mcg Puff, 1-2 PUFF IH Q4H PRN for SHORTNESS OF BREATH for 5 Days, #1 INH 0 Refills PHARMACY TO DISPENSE 1 INHALER FOR USE Prov:ROSE COTA MD 11/20/24 Prednisone (Prednisone) 50 Mg Tablet, 1 TAB PO DAILY for 5 Days, #5 TAB 0 Refills Prov:ROSE COTA MD 11/20/24 Meloxicam, Submicronized (Meloxicam) 10 Mg Capsule, 10 MG PO DAILY, #10 CAP Prov:LOU LUNA MD 12/21/23 Past Medical History Past Medical History: No Pertinent History Additional Past Medical Hx: denies pmhx Surgical History: None Surgical History Other: hernia repair Family History: Negative Social History: Negative RN Note Reviewed/Agreed w/PFSH: Yes Review of System Dictation CONSTITUTIONAL: NEGATIVE EXCEPT FOR HPI HEAD/FACE: NEGATIVE EXCEPT FOR HPI EENT: NEGATIVE EXCEPT FOR HPI RESPIRATORY: NEGATIVE EXCEPT FOR HPI GASTROINTESTINAL/ABDOMINAL: NEGATIVE EXCEPT FOR HPI ABDOMINAL CRAMPING WITH NAUSEA VOMITING GENITOURINARY: NEGATIVE EXCEPT FOR HPI MUSCULOSKELETAL: NEGATIVE EXCEPT FOR HPI INTEGUMENTARY: NEGATIVE EXCEPT FOR HPI NEUROLOGICAL/PSYCH: NEGATIVE EXCEPT FOR HPI HEMATOLOGIC/LYMPHATIC: NEGATIVE EXCEPT FOR HPI ALL SYSTEMS NEGATIVE, EXCEPT NOTED ABOVE. 13 POINT REVIEW OF SYSTEMS ASSESSED AND ALL NEGATIVE EXCEPT FOR ABOVE. Initial Vital Sign VS Vital Signs Date Time Temp Pulse Resp B/P (MAP) Pulse Ox O2 Delivery O2 Flow Rate FiO2 08/02/25 13:42 97.9 64 20 143/88 99 Room Air 0 08/02/25 14:07 21 Physical Exam Dictation VITAL SIGNS REVIEWED GENERAL APPEARANCE: ALERT, ORIENTED X 3, M MILD ACUTE DISTRESS, WELL DEVELOPED, NOURISHED. HEAD AND FACE: NON-TRAUMATIC. EYES: PERRL, PINK CONJUNCTIVAS, EYELID NO TRAUMA, ANTERIOR CHAMBER WITH ARCUS SENILIS. EARS: PINNAS INTACT AND NO SIGNS OF TRAUMA OR ERYTHEMA EAR CANALS CLEAR AND NO DISCHARGE TM NO ERYTHEMA NOSE: NO DISCHARGE, NO BLEEDING. OROPHARYNX: MOUTH NORMAL, TONGUE PINK, PHARYNX CLEAR,NO ERYTHEMA, TONSILS NO EXUDATES, NO ABSCESSES NOTED, MUCOUS MEMBRANE MOIST NECK: SUPPLE, NON-TENDER, NO THYROMEGALY, NO MASSES, NO JVD, NO BRUITS BREAST:DEFERRED CHEST:NO TENDERNESS, NO CREPITUS, NO PARADOXICAL MOVEMENT, NO RETRACTIONS LUNGS:CLEAR, WELL-VENTILATED, SYMMETRIC, NO RALES, NO WHEEZING, NO RHONCHI, NO STRIDOR, GOOD BREATH SOUNDS BILATERALLY HEART: REGULAR RATE, REGULAR RHYTHM, NO MURMUR, NO GALLOPS VASCULAR: NO PERIPHERAL EDEMA, ABDOMEN: SOFT, POSITIVE BOWEL SOUNDS, NONDISTENDED, NO GUARDING, MILD LEFT LOWER QUADRANT TENDERNESS WITH PALPATION. NO REBOUND NEGATIVE CVAT RECTAL: DEFERRED GENITAL: DEFERRED NEUROLOGICAL: NORMAL SPEECH, MOTOR FUNCTION INTACT, SENSORY FUNCTION INTACT MUSCULOSKELETAL: NECK NONTENDER, FULL RANGE OF MOTION, BACK NONTENDER, FULL RANGE OF MOTION, EXTREMITIES: NONTENDER, FULL RANGE OF MOTION SKIN: COLOR PINK, DRY, NO TURGOR, NO RASH, NO LACERATIONS, NO ABRASIONS, NO CONTUSIONS. LYMPHATIC: DEFERRED Results (Laboratory/Radiology) Laboratory/Radiology Laboratory Tests Test 08/02/25 13:55 08/02/25 14:00 White Blood Count 9.7 K/uL (4.8-10.8) Red Blood Count 4.95 MIL/uL (4.50-6.20) Hemoglobin 14.6 g/dL (14.0-18.0) Hematocrit 44.2 % (42-54) Mean Corpuscular Volume 89.3 fL (79-99) Mean Corpuscular Hemoglobin 29.5 pg (27.0-33.0) Mean Corpuscular Hemoglobin Concent 33.0 g/dL (32.0-36.0) Red Cell Distribution Width 11.6 % (11.0-15.5) Platelet Count 197 K/uL (130-400) Mean Platelet Volume 10.4 fL (7.5-10.5) Immature Granulocyte % (Auto) 0.3 % (0-1) Neutrophils (%) (Auto) 77.4 % (40.0-77.0) H Lymphocytes (%) (Auto) 14.9 % (21.0-51.0) L Monocytes (%) (Auto) 6.0 % (3.0-13.0) Eosinophils (%) (Auto) 1.1 % (0.0-8.0) Basophils (%) (Auto) 0.3 % (0.0-5.0) Neutrophils # (Auto) 7.5 K/uL (1.8-7.7) Lymphocytes # (Auto) 1.5 K/uL (1.0-4.8) Monocytes # (Auto) 0.6 K/uL (0.1-1.0) Eosinophils # (Auto) 0.11 K/uL (0.00-0.70) Basophils # (Auto) 0.03 K/uL (0.00-0.20) Absolute Immature Granulocyte (auto 0.03 K/uL (0-1) Nucleated Red Blood Cells 0.0 % (0.0-0.19) Sodium Level 138 mmol/L (136-145) Potassium Level 4.2 mmol/L (3.5-5.1) Chloride Level 102 mmol/L (101-111) Carbon Dioxide Level 31 mmol/L (21-32) Blood Urea Nitrogen 11 mg/dL (7-18) Creatinine 0.9 mg/dL (0.5-1.3) Glomerular Filtration Rate Calc 113 mL/min (>90) Random Glucose 91 mg/dL (70-105) Total Calcium 8.8 mg/dL (8.5-10.1) Lipase 25 U/L (16-77) Urine Color LIGHT-YELLOW (YELLOW) Urine Appearance CLEAR (CLEAR) Urine pH 6.0 (5.0-8.0) Urine Specific [place] 1.025 (1.001-1.031) Urine Protein NEGATIVE mg/dL (NEGATIVE) Urine Glucose (UA) NEGATIVE mg/dL (NEGATIVE) Urine Ketones NEGATIVE mg/dL (NEGATIVE) Urine Occult Blood NEGATIVE (NEGATIVE) Urine Nitrate NEGATIVE (NEGATIVE) Urine Bilirubin NEGATIVE mg/dL (NEGATIVE) Urine Urobilinogen 0.2 mg/dL (0.2-1.0) Urine Leukocyte Esterase NEGATIVE Stacy/uL with and without intravenous contrast. COMPARISON: Study dated 01/20/17. FINDINGS: LUNG BASES: The lung bases appear clear. No pleural effusions are seen. LIVER: Multiple variable-sized hypodense cysts in the liver, the largest of size 8 x 7 mm in segment V. The liver is enlarged in size. The right hepatic lobe measures up to 18 cm. GALLBLADDER AND BILE DUCTS: The gallbladder appears within normal limits. No radioopaque gallstones are seen. No biliary ductal dilatation is evident. PANCREAS: Unremarkable. SPLEEN: Unremarkable. ADRENAL GLANDS: Unremarkable. KIDNEYS, URETERS, AND BLADDER: The kidneys appear within normal limits. There is no hydronephrosis or hydroureter. No urinary calculi are seen. STOMACH AND BOWEL: Unremarkable appearance of the stomach and bowel. No evidence of bowel obstruction. No evidence suggesting enteritis or colitis. Few diverticuli along the transverse colon. APPENDIX: No evidence of acute appendicitis on CT examination. Appendix is seen on the study and appears normal. PERITONEUM: No free fluid. No free air. LYMPH NODES: No lymphadenopathy is evident. VASCULATURE: No evidence of abdominal aortic aneurysm. BONES: No aggressive appearing osseous lesion. No acute osseous pathology evident. IMPRESSION: 1. No acute intraabdominal or pelvic pathology. 2. Please note that the ordered exam does not include the entire pelvis /[place] DICTATED BY: RUDDY RUSSELL Jr., MD DATE: 08/02/25 1828 Labs Reviewed?: Yes ED Course ED Course Orders Procedure Category Date Status Time Cbc With Differential LAB 08/02/25 Complete 13:48 Urinalysis Profile LAB 08/02/25 Complete 13:48 Lipase LAB 08/02/25 Complete 13:48 Basic Metabolic Panel LAB 08/02/25 Complete 13:48 Ct Abdomen W/Wo CT 08/02/25 Resulted Contrast 14:39 Iohexol (Omnipaque) PHA 08/02/25 Complete 15:42 Current Medications Medications (Trade) Dose Ordered Sig/Andrzej Route PRN Reason Start Time Stop Time Status Last Admin Dose Admin Iohexol (Omnipaque) 75 ml STK-MED ONCE IV 08/02/25 15:42 08/02/25 15:43 DC Vital Signs Date Time Temp Pulse Resp B/P (MAP) Pulse Ox O2 Delivery O2 Flow Rate FiO2 08/02/25 15:24 98.4 67 16 140/84 100 Room Air* 0 21 08/02/25 14:07 98.2 71 16 141/87 99 Room Air* 0 21 08/02/25 13:42 97.9 64 20 143/88 99 Room Air 0 Medical Decision Making MDM MDM: DIFFERENTIAL DIAGNOSIS: APPENDICITIS/DIVERTICULITIS/UTI/HERNIA/ELECTROLYTE IMBALANCE/DEHYDRATION/GASTROENTERITIS RATIONALE: TESTS CONSIDERED AND ORDERED SECONDARY TO SHARED DECISION MAKING INCLUDE: LABS/RADIOLOGY PREVIOUS OUTSIDE RECORDS REVIEWED: OLD ER VISITS. RISK OF COMPLICATION AND/OR MORBIDITY OR MORTALITY OF PATIENT MANAGEMENT: NONE MEDICATIONS-PER MEDICATION RECONCILIATION NEED FOR HOSPITALIZATION: PATIENT DOES NOT MEET CRITERIA FOR HOSPITALIZATION. NONE NEED FOR EMERGENCY MAJOR/MINOR SURGERY: NO THERE ARE NO SOCIAL CONCERNS WITH THIS PATIENT. PRESCRIPTION DRUG MANAGEMENT NONE PRESCRIPTIONS WILL INCLUDE SYMPTOMATIC CARE PATIENT'S PRIOR EXTERNAL MEDICAL RECORDS FROM OTHER ER VISITS WERE REVIEWED BY ME INDICATED. PRIOR TESTING AND RESULTS FROM PREVIOUS VISITS WERE REVIEWED. PRIOR TESTS WERE TAKEN INTO ACCOUNT WITH MEDICAL DECISION MAKING AND RESOURCE UTILIZATION, INDEPENDENT HISTORIAN/HISTORIANS WERE USED TO OBTAIN COMPLETE MED ICAL HISTORY. I INDEPENDENTLY INTERPRETED THE TEST THAT WERE PERFORMED, RESULTS WERE REVIEWED BY ME AND CONSIDERED FINDINGS ON RADIOLOGY IF ORDERED. MEDICAL MANAGEMENT AND EXAMINATION INTERPRETATION DISCUSSIONS WERE HAD BY ME WITH OTHER QUALIFIED HEALTHCARE PROFESSIONALS INDICATED FOR THE PATIENT'S CARE. DX & DISP Disposition: Discharge Departure Impression: Primary Impression: Acute left lower quadrant pain Additional Impression: Gastroenteritis Condition: Stable Scripts Dicyclomine HCl (Bentyl) 20 Mg Tab 20 MG PO Q6HPRN PRN for ABDOMINAL CRAMPING, #30 TAB Prov: CASSANDRA MOTT TENANT COORDINATOR 08/02/25 Additional Instructions: FOLLOW-UP WITH PRIMARY CARE PROVIDER IN 1 TO 2 DAYS. TAKE MEDICATIONS DIRECTED HERE IN THE EMERGENCY ROOM. OKAY TO CONTINUE HOME MEDICATIONS UNLESS OTHERWISE DISCUSSED DURING YOUR VISIT IN THE EMERGENCY ROOM TODAY. RETURN TO YOUR NEAREST EMERGENCY ROOM IF SYMPTOMS WORSEN OR IF THERE IS NO IMPROVEMENT. CALL 911 IF YOU NEED IMMEDIATE ASSISTANCE. TAKE TYLENOL OR MOTRIN [id number] NEEDED AND IF NO CONTRAINDICATIONS ARE PRESENT. INCREASE ORAL HYDRATION. A WOUND CULTURE OR URINE CULTURE WAS ORDERED HERE IN THE EMERGENCY ROOM DEPARTMENT PLEASE FOLLOW-UP WITH PRIMARY CARE PROVIDER AND ADVISE THEM TO GET REPEAT PORTS FROM OUR FACILITY. IF YOU HAD ANY MADISON WRAP/SPLINTS THAT WERE APPLIED HERE, PLEASE DO NOT REMOVE THEM UNTIL YOU SEE YOUR PRIMARY CARE OR SPECIALTY. DIET AND ACTIVITY TOLERATED. FOLLOW UP WITH THE YOUR PRIMARY CARE DOCTOR ON MONDAY WITHOUT FAIL FOR MANAGEMENT. Referrals: RAYMOND IBANEZ (PCP) Time of Disposition: 17:34 I have reviewed the case, and I agree with, Diagnosis and Plan CASSANDRA MOTT NP Aug 02, 2025 13:50
[2025-08-02 14:20] LABS: IMMATURE GRANULOCYTE ABSOLUTE 0.03 K/uL (0-1); NUCLEATED RED BLOOD CELLS 0.0 % (0.0-0.19); PLATELET COUNT (AUTO) 197 K/uL (130-400); RED BLOOD CELL COUNT(AUTO) 4.95 MIL/uL (4.50-6.20); RED CELL DISTRIBUTION WIDTH 11.6 % (11.0-15.5); WHITE BLOOD COUNT (AUTO) 9.7 K/uL (4.8-10.8)
[2025-08-02 14:24] LABS: CREATININE 0.9 mg/dL (0.5-1.3); GLOMERULAR FILTR. RATE CALC 113.0 mL/min (>90); GLUCOSE,RANDOM 91.0 mg/dL (70-105); SODIUM SERUM 138.0 mmol/L (136-145); UREA NITROGEN, BLOOD 11.0 mg/dL (7-18)
[2025-08-02 14:28] LABS: APPEARANCE,URINE CLEAR (CLEAR); GLUCOSE, URINE (UA) NEGATIVE (NEGATIVE); LEUKOCYTE ESTERASE ,URINE NEGATIVE Leu/uL (NEGATIVE); NITRATE,URINE NEGATIVE (NEGATIVE); OCCULT BLOOD,URINE NEGATIVE (NEGATIVE)
[2025-08-02 14:34] LABS: ADD UA MICROSCOPIC NO
[2025-08-02] MEDS ORDERED: IOHEXOL-350 75 ML VIAL IV ONE (15:42)
--- NOTE | 2025-08-02 17:30 | HMCIMG ---
EXAM: CT Abdomen with and without IV contrast CLINICAL HISTORY: LEFT LOWER QUADRANT PAIN TENDERNESS TECHNIQUE: Axial computed tomography images of the abdomen with and without intravenous contrast. Please note please note that the exam ordered does not include the entire pelvis. CONTRAST: with and without intravenous contrast. COMPARISON: Study dated 01/20/17. FINDINGS: LUNG BASES: The lung bases appear clear. No pleural effusions are seen. LIVER: Multiple variable-sized hypodense cysts in the liver, the largest of size 8 x 7 mm in segment V. The liver is enlarged in size. The right hepatic lobe measures up to 18 cm. GALLBLADDER AND BILE DUCTS: The gallbladder appears within normal limits. No radioopaque gallstones are seen. No biliary ductal dilatation is evident. PANCREAS: Unremarkable. SPLEEN: Unremarkable. ADRENAL GLANDS: Unremarkable. KIDNEYS, URETERS, AND BLADDER: The kidneys appear within normal limits. There is no hydronephrosis or hydroureter. No urinary calculi are seen. STOMACH AND BOWEL: Unremarkable appearance of the stomach and bowel. No evidence of bowel obstruction. No evidence suggesting enteritis or colitis. Few diverticuli along the transverse colon. APPENDIX: No evidence of acute appendicitis on CT examination. Appendix is seen on the study and appears normal. PERITONEUM: No free fluid. No free air. LYMPH NODES: No lymphadenopathy is evident. VASCULATURE: No evidence of abdominal aortic aneurysm. BONES: No aggressive appearing osseous lesion. No acute osseous pathology evident. IMPRESSION: 1. No acute intraabdominal or pelvic pathology. 2. Please note that the ordered exam does not include the entire pelvis /[place]
[2025-08-02] MEDS ORDERED: DICY20TA2 PO (17:34)
[2025-08-02 18:00] VITALS: BP 113/61; PULSE 71; RESP 19; TEMP 98.4; O2SAT 99
--- NOTE | 2025-08-02 18:00 | NUR ---
DC PATIENT WAS DC'D BY CASSANDRA MOTT, I DC'D PATIENTS IV WITH CATH STILL INTACT AND APPLIED 2X2 GAUZE WITH COBAN, I PROVIDED INFO BASED ON DIAGNOSIS, PRESCRIPTIONS AND ANSWERED ANY FOLLOW UP QUESTIONS PATIENT AMBULATED OUT OF ED, NO COMPLICATIONS
== END 2025-08-02 18:00 | disposition home or self-care (01) ==
LOC: EDH 13:41
DX: R10.32 Left lower quadrant pain (principal); K52.9 Noninfective gastroenteritis and colitis, unspecified; Z79.1 Long term (current) use of non-steroidal anti-inflammatories (NSAID); Z79.52 Long term (current) use of systemic steroids; Z88.0 Allergy status to penicillin; Z98.890 Other specified postprocedural states
CPT/HCPCS: 99284; 74170; 80048; 83690; 85025; 81003; 36415; Q9967

== ENCOUNTER 2025-10-07 02:41 | Emergency (ER) | payer BC, MEDICAID ==
[~2025-10-07] VITALS: Ht 190.5 cm; Wt 121.1 kg
--- NOTE | 2025-10-07 03:17 | ERN ---
General Chief Complaint: Testicular Injury/Pain Stated Complaint: C/O TESTICULAR PAIN W/ABD PAIN Time Seen by MD: 02:48 History of Present Illness Initial Comments 40-year-old male history of asthma here for evaluation of testicular pain. Patient states that he was taking a shower when he felt a 3rd lump on his testicles. He was concerned about it, pressed on it and felt some pain in his lower abdomen. He took no medications prior to arrival. He was concerned about the bulge thus he decided to come to the emergency room for evaluation. No similar symptoms before in the past. Denies any trauma, dysuria. Allergies: Penicillin Allergies: Coded Allergies: Penicillins (Unverified Allergy, Unknown, 04/24/22) Home Meds Active Scripts Dicyclomine HCl (Bentyl) 20 Mg Tab, 20 MG PO Q6HPRN PRN for ABDOMINAL CRAMPING, #30 TAB Prov:CASSANDRA MOTT WIRELESS MANAGER 08/02/25 Dicyclomine HCl (Bentyl) 20 Mg Tab, 1 TAB PO BID for irritable bowel symptoms for 5 Days, #10 10 0 Refills Prov:ROSE COTA MD 07/24/25 Ondansetron (Ondansetron Odt) 4 Mg Tab.rapdis, 4 MG PO BID for 5 Days, #10 TAB Prov:ROSE COTA MD 07/24/25 Ibuprofen (Ibuprofen 800 mg Tab) 800 Mg Tab, 800 MG PO Q8H PRN for fever or pain, #30 TAB 0 Refills Prov:CASSANDRA MOTT WIRELESS MANAGER 12/23/24 Albuterol Sulfate (Ventolin Hfa/Proventil Hfa/Proair Hfa) 90 Mcg Puff, 1-2 PUFF IH Q4H PRN for SHORTNESS OF BREATH for 5 Days, #1 INH 0 Refills PHARMACY TO DISPENSE 1 INHALER FOR USE Prov:ROSE COTA MD 11/20/24 Prednisone (Prednisone) 50 Mg Tablet, 1 TAB PO DAILY for 5 Days, #5 TAB 0 Refills Prov:ROSE COTA MD 11/20/24 Meloxicam, Submicronized (Meloxicam) 10 Mg Capsule, 10 MG PO DAILY, #10 CAP Prov:LOU LUNA MD 12/21/23 Past Medical History Past Medical History: No Pertinent History Medical History Other: denies pmhx Past Surgical History: Other Surgical History Other: HERNIA REPAIR Family History Family History: Negative Social History Social History: Negative Genitourinary: (+) pain; (-) dysuria Physical Exam Physical Exam Dictation GENERAL APPEARANCE NAD, activity normal for age, well developed/ well nourished, no cyanosis, pallor, or diaphoresis. EYES lids/conjunctiva normal. EARS/NOSE/THROAT Mucous membranes moist, nares normal, lips/teeth normal uvula midline without oral pharyngeal erythema, exudate or swelling TMs normal bilaterally. No lymphangitis/lymphedema. HEAD/NECK normocephalic atraumatic, no facial trauma, neck is supple. RESPIRATORY respiratory effort normal, speaks in full sentences, no tripod position, no accessory muscle use. Lungs clear to auscultation without rhonchi, wheezes, rales CARDIAC Regular rate and rhythm, no edema. ABDOMINAL Soft, ND/NT. No evidence of fluid wave. No pulsatile masses on exam, rebound tenderness, Copeland sign or pain over Mcburney's point. MUSCLES/EXTREMITIES No abnormal range of motion, no swelling. SKIN Warm, pink and dry. No rashes, dermatoses, petechiae or lesions. NEUROLOGICAL Speech is clear and appropriate. Normal level of consciousness. Gait and coordination are normal. 5/5 strength in all extremities. PSYCH Normal mood and affect. Judgement/competence is appropriate : Testicles normal. No pain on palpation Results EKG/XRAY/US/CT/MRI Ultrasound Comment As per light rail signal technician left cystic structure seen with the [place] vascularity. 4 x 1.7 x 1.8 cm. Right testicle within normal limits good flow. Left testicle within normal limits good flow. MDM 40-year-old male here for evaluation of testicular pain. We will get ultrasound to rule out any pathology. Disposition pending results of the ultrasound 0413: Patient well-appearing no acute distress. Vital signs stable. Ultrasound wet read discussed with the patient. He is stable for discharge home. Advised on concerning signs and symptoms for which to return to the emergency room in guarded we will discharge home at this time. All questions answered. Follow up with PCP: Dr. Pantoja ED Course Orders Procedure Category Date Status Time Us Scrotum & Contents US 10/07/25 Taken 02:48 Urinalysis Profile LAB 10/07/25 In Process 03:16 Vital Signs Date Time Temp Pulse Resp B/P (MAP) Pulse Ox O2 Delivery O2 Flow Rate FiO2 10/07/25 02:46 97.3 83 18 127/82 99 Room Air DX & DISP Disposition: Discharge Departure Impression: Primary Impression: Testicle lump Additional Impressions: Testicle pain, Testicular cyst Condition: Stable Referrals: RAYMOND PANTOJA (PCP) CONSTANTINE MCMAHON MD Oct 07, 2025 03:17
[2025-10-07 04:11] LABS: APPEARANCE,URINE CLEAR (CLEAR); GLUCOSE, URINE (UA) NEGATIVE (NEGATIVE); LEUKOCYTE ESTERASE ,URINE NEGATIVE Leu/uL (NEGATIVE); NITRATE,URINE NEGATIVE (NEGATIVE); OCCULT BLOOD,URINE NEGATIVE (NEGATIVE)
[2025-10-07 04:14] LABS: ADD UA MICROSCOPIC NO
--- NOTE | 2025-10-07 04:14 | HMCIMG ---
EXAM: US Scrotum. CLINICAL HISTORY: trauma r/o torsion TECHNIQUE: Real-time ultrasound of the scrotum with color Doppler and image documentation. COMPARISON: None provided. FINDINGS: RIGHT TESTICLE: The right testicle measures 4.1 x 2.0 x 2.4 cm. Normal in size and echogenicity, no abnormal mass. Normal Doppler flow. LEFT TESTICLE: The left testicle measures 4.5 x 2.3 x 3.1 cm. Normal in size and echogenicity, no abnormal mass. Normal Doppler flow. EPIDIDYMIDES: The right epididymis measures 8 mm at the head, 5 mm at the body, and 5 mm at the tail. The left epididymis measures 9 mm at the head, 3 mm at the body, and 4 mm at the tail. The epididymes are normal in size and demonstrate Doppler flow within normal limits. SCROTUM: No hydrocele or varicocele is evident. Posterior to the left testicle, there is a 4.0 x 1.7 x 1.8 cm cystic structure without vascularity, which could be a loculated hydrocele. IMPRESSION: Posterior to the left testicle, there is a 4.0 x 1.7 x 1.8 cm cystic structure without vascularity, which could be a loculated hydrocele. No acute process or testicular torsion is evident. /[place]
[2025-10-07 05:26] VITALS: BP 134/90; PULSE 70; RESP 18; TEMP 98.3; O2SAT 98
== END 2025-10-07 05:27 | disposition home or self-care (01) ==
LOC: EDH 02:41
DX: N44.2 Benign cyst of testis (principal); J45.909 Unspecified asthma, uncomplicated; Z79.1 Long term (current) use of non-steroidal anti-inflammatories (NSAID); Z79.52 Long term (current) use of systemic steroids; Z88.0 Allergy status to penicillin; Z98.890 Other specified postprocedural states
CPT/HCPCS: 36415; 76705; 76870; 80048; 81003; 85025; 99284; 99285; J1885

== ENCOUNTER 2025-11-17 19:08 | Emergency (ER) | payer BC, MEDICAID ==
[~2025-11-17] VITALS: Ht 190.5 cm; Wt 122.5 kg
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
[2025-11-17] MEDS: TRIAMCINOLONE ACETONIDE 40 MG/ML 1ML VIAL IM ONE (19:55)
[2025-11-17] MEDS: ORPHENADRINE 60MG/2ML IM ONE (19:55)
[2025-11-17 21:20] LABS: APPEARANCE,URINE CLEAR (CLEAR); GLUCOSE, URINE (UA) NEGATIVE (NEGATIVE); LEUKOCYTE ESTERASE ,URINE NEGATIVE Leu/uL (NEGATIVE); NITRATE,URINE NEGATIVE (NEGATIVE); OCCULT BLOOD,URINE NEGATIVE (NEGATIVE)
[2025-11-17 21:21] LABS: ADD UA MICROSCOPIC YES
[2025-11-17 21:27] LABS: AMPHET/METH SCREEN,URINE NEGATIVE (NEGATIVE); BARBITURATE SCREEN, URINE NEGATIVE (NEGATIVE); CANNABINOID SCREEN,URINE POSITIVE (NEGATIVE); COCAINE SCREEN,URINE NEGATIVE (NEGATIVE)
--- NOTE | 2025-11-17 21:57 | NUR ---
PATIENT REFUSING VICOPROFEN AT THIS TIME. ED MD MADE AWARE.
--- NOTE | 2025-11-17 22:03 | HMCIMG ---
EXAM: CR Lumbar Spine, 2 Views. CLINICAL HISTORY: Back pain. COMPARISON: dated 09/08/20. FINDINGS: BONES: No acute fracture or aggressively appearing osseous lesion. ALIGNMENT: Loss of normal lumbar lordosis with mild dextroscoliosis. DISCS / DEGENERATIVE CHANGES: Multilevel thoracolumbar spondylosis with mild disc space narrowing and prominent marginal osteophytes, predominantly at the T11-12 level. SOFT TISSUES: The soft tissues are unremarkable. IMPRESSION: No acute lumbar spine abnormality is evident. Multilevel mild thoracolumbar spondylosis. No significant interval change. /[place]
[2025-11-17] MEDS ORDERED: CYCL5TAB3 PO (22:16)
[2025-11-17] MEDS ORDERED: KETO10 PO (22:16)
[2025-11-17 22:19] VITALS: BP 123/72; PULSE 82; RESP 18; TEMP 98.6; O2SAT 99
== END 2025-11-17 22:28 | disposition home or self-care (01) ==
LOC: EDH 19:08
DX: S39.012A Strain of muscle, fascia and tendon of lower back, initial encounter (principal); M62.830 Muscle spasm of back; E66.9 Obesity, unspecified; F12.90 Cannabis use, unspecified, uncomplicated; Z88.0 Allergy status to penicillin; Z68.33 Body mass index [BMI] 33.0-33.9, adult; Z79.52 Long term (current) use of systemic steroids; Z79.1 Long term (current) use of non-steroidal anti-inflammatories (NSAID); Z90.49 Acquired absence of other specified parts of digestive tract; Z98.890 Other specified postprocedural states; X50.9XXA Other and unspecified overexertion or strenuous movements or postures, initial encounter; Y93.89 Activity, other specified; Y92.89 Other specified places as the place of occurrence of the external cause; Y99.8 Other external cause status
CPT/HCPCS: 99284; 80305; 72100; 96372 ×2; 81001; J3301; J2360